=== PATIENT | female | born 1945 | race American Indian/Alaskan Native ===

== ENCOUNTER 2018-11-10 08:41 | Observation (INO) | payer MEDICARE ==
--- NOTE | 2018-11-10 09:21 | C.PDOC ---
History Of Present Illness 73-year-old female presents to the ED for evaluation of chest pain and nausea for 2-3 days. The patient reports she has not been feeling well associated with nausea for the last few days, today states she was near syncope, and felt a pinching to the left side of the chest. Denies shortness of breath, fever, vomiting, and any other associated symptoms. Time Seen by Provider: 11/10/18 09:13 Chief Complaint (Nursing): Chest Pain History Per: Patient History/Exam Limitations: no limitations Onset/Duration Of Symptoms: Days Current Symptoms Are (Timing): Still Present Recent travel outside of the [place]: No Past Medical History Reviewed: Historical Data, Nursing Documentation, Vital Signs Vital Signs: Last Vital Signs Temp 97.9 F 11/10/18 08:54 Pulse 70 11/10/18 08:54 Resp 16 11/10/18 08:54 BP 133/78 11/10/18 08:54 Pulse Ox 99 11/10/18 08:54 - Medical History PMH: HTN, Hyperlipidemia - [facility] Procedures APPLICATION OF SPLINT (04/04/15) COLONOSCOPY (08/27/13) ESOPHAGOGASTRODUODENOSCOPY [EGD] W/CLOSED BIOPSY (08/27/13) Family History: States: Unknown Family Hx - Social History Hx Tobacco Use: No Hx Alcohol Use: No Hx Substance Use: No - Immunization History Hx Tetanus Toxoid Vaccination: No Hx Influenza Vaccination: No Hx Pneumococcal Vaccination: No Review Of Systems Except As Marked, All Systems Reviewed And Found Negative. Constitutional: Negative for: Fever Cardiovascular: Positive for: Chest Pain Respiratory: Negative for: Shortness of Breath Gastrointestinal: Positive for: Vomiting Neurological: Positive for: Other (near syncope.) Physical Exam - Physical Exam Appears: Well, Non-toxic, No Acute Distress Skin: Normal Color, Warm, Dry Head: Atraumatic, Normacephalic Eye(s): bilateral: Normal Inspection Oral Mucosa: Moist Neck: Normal ROM, Supple Chest: Symmetrical, No Deformity Cardiovascular: Rhythm Regular, No Murmur Respiratory: No Rales, No Rhonchi, No Wheezing Gastrointestinal/Abdominal: Normal Exam, Soft, No Tenderness Neurological/Psych: Oriented x3, Normal Speech, Normal Cognition ED Course And Treatment - Laboratory Results Result Diagrams: 11/10/18 09:41 11/10/18 09:41 ECG Rhythm: Sinus Rhythm Interpretation Of ECG: Nonspecific T wave abnormalities Rate From EC O2 Sat by Pulse Oximetry: 99 (RA) Pulse Ox Interpretation: Normal - Other Rad CXR X-Ray: Interpreted by Me, Viewed By Me Interpretation: Cardiomegaly. Vascular congestion. No infiltrates Medical Decision Making Medical Decision Making: Plan: -EKG -Blood sent. -CXR Progress/Update: :28 : Spoke with Dr. Cerrato regarding the patients case, who admitted the patient, and requests consult with Dr. Resendiz. Disposition - Disposition Disposition: HOSPITALIZED Disposition Time: 10:37 Condition: STABLE - Clinical Impression Clinical Impression: Chest pain - Scribe Statement The provider has reviewed the documentation as recorded by the Scribe (Ivon Clifton) Provider Attestation: All medical record entries made by the Scribe were at my direction and personally dictated by me. I have reviewed the chart and agree that the record accurately reflects my personal performance of the history, physical exam, medical decision making, and the department course for this patient. I have also personally directed, reviewed, and agree with the discharge instructions and disposition. Decision To Admit - Pt Status Changed To: Hospital Disposition Of: Observation - . Bed Request Type: Telemetry Admitting Physician: Akosua Cerrato Patient Diagnosis: Chest pain
[2018-11-10 09:56] LABS: BASO % 0.9 % (0.0-2.0); EOS # 0.2 K/uL (0.0-0.7); EOS % 3.7 % (0.0-4.0); HEMOGLOBIN 12.3 g/dL (11.0-16.0); LYMPH # 1.1 K/uL (1.0-4.3); LYMPH % 20.6 % (20.0-40.0); MEAN CELL VOLUME 92.5 fL (81.0-99.0); MEAN CORPUSCULAR HEMOGLOBIN 31.3 pg (27.0-31.0); MEAN CORPUSCULAR HGB CONC 33.8 g/dL (33.0-37.0); MEAN PLATELET VOLUME 8.4 fL (7.2-11.7); MONO # 0.7 K/uL (0.0-0.8); MONO % 12.5 % (0.0-10.0); NEUT # 3.3 K/uL (1.8-7.0); NEUT % 62.3 % (50.0-75.0); RBC 3.95 Mil/uL (3.80-5.20); RED CELL DISTRIBUTION WIDTH 13.3 % (11.5-14.5); WHITE BLOOD COUNT 5.3 K/uL (4.8-10.8)
[2018-11-10 10:09] LABS: ALB/GLOB RATIO 1.1 (1.0-2.1); ALBUMIN 4.3 g/dL (3.5-5.0); ALT/SGPT 41 U/L (9-52); AST/SGOT 65 U/L (14-36); BLOOD UREA NITROGEN 8 mg/dL (7-17); CALCIUM 9.6 mg/dl (8.6-10.4); GFR NON-AFRICAN AMERICAN > 60; LIPASE 128 U/L (23-300)
--- NOTE | 2018-11-10 13:13 | RAD ---
Date of service: 11/10/2018 PROCEDURE: CHEST RADIOGRAPH, 1 VIEW HISTORY: chest pain COMPARISON: Comparison is made with 04/28/2016 FINDINGS: LUNGS: Clear. PLEURA: No pneumothorax or pleural fluid seen. CARDIOVASCULAR: No aortic atherosclerotic calcification present. Normal. OSSEOUS STRUCTURES: No significant abnormalities. VISUALIZED UPPER ABDOMEN: Normal. OTHER FINDINGS: None. IMPRESSION: No significant interval changes.
--- NOTE | 2018-11-10 16:42 | CP.PCM.CON ---
History of Present Illness - History of Present Illness History of Present Illness: 73 years old female came to the ED at [facility] complaining of a pinching sensation in the left chest on and off for the past 4 days, with occasional nausea and burping. Patient denies any SOB, weakness, radiation of the pain. Kn own to be obese, hypertensive, with a Hx of CAD( s/p coronary angioplasty 20 years ago at [facility]), hypercholesterolemia, s/p right breast lumpectomy 2 years go for breast cancer, esophageal reflux ( EGD 2-3 years ago ( Dr Cheung), she denies any cigarette smoking. any alcohol abuse, any drug allergy, any family history of heart disease. Her home medications include Amlodipine, ASA, Anastrozole, Atorvastatin, Omeprazole. First ECG done in the ED: RSR, non spefic ST-T wave change. CXR: No acute infilltrate. TNI: WNL. Review of Systems - Cardiovascular Cardiovascular: Chest Pain - Gastrointestinal Gastrointestinal: Nausea Past Patient History - Infectious Disease Hx of Infectious Diseases: None - Tetanus Immunizations Tetanus Immunization: Unknown - Past Social History Smoking Status: Never Smoked Alcohol: None Home Situation {Lives}: With Family Domestic Violence: Negative - CARDIAC Hx Cardiac Disorders: Yes Hx Angina: Yes Hx Hypercholesterolemia: Yes Hx Hypertension: Yes - HEMATOLOGICAL/ONCOLOGICAL Hx Cancer: Yes (LEFT BREAST) - GASTROINTESTINAL Hx Gastroesophageal Reflux: Yes - PSYCHIATRIC Hx Substance Use: No - SURGICAL HISTORY Hx Angiogram: Yes Hx Angioplasty: Yes (Coronary angioplasty 20 years ago at [facility]) Hx Breast Biopsy: Yes - ANESTHESIA Hx Anesthesia: Yes Hx Anesthesia Reactions: No Meds Allergies/Adverse Reactions: Allergies Allergy/AdvReac Type Severity Reaction Status Date / Time No Known Allergies Allergy Verified 11/10/18 08:51 - Medications Medications: Current Medications Amlodipine Besylate (Norvasc) 10 mg PO DAILY [facility] Last Admin: 11/10/18 13:48 Dose: 10 mg Aspirin (Aspirin Chewable) 81 mg PO DAILY [facility] Physical Exam - Constitutional Appears: Well, No Acute Distress - Head Exam Head Exam: NORMAL INSPECTION - Eye Exam Eye Exam: Normal appearance Pupil Exam: NORMAL ACCOMODATION - ENT Exam ENT Exam: Normal Exam - Neck Exam Neck exam: Positive for: Normal Inspection - Respiratory Exam Respiratory Exam: Clear to Auscultation Bilateral, NORMAL BREATHING PATTERN - Cardiovascular Exam Cardiovascular Exam: REGULAR RHYTHM - GI/Abdominal Exam GI & Abdominal Exam: Normal Bowel Sounds, Soft - Rectal Exam Rectal Exam: Deferred - Extremities Exam Extremities exam: Positive for: normal inspection - Back Exam Back exam: NORMAL INSPECTION - Neurological Exam Neurological exam: Alert, Oriented x3 - Psychiatric Exam Psychiatric exam: Anxious - Skin Skin Exam: Dry, Intact, Normal Color Results - Vital Signs Recent Vital Signs: Last Vital Signs Temp 98.1 F 11/10/18 11:47 Pulse 74 11/10/18 15:49 Resp 18 11/10/18 11:47 BP 134/78 11/10/18 11:47 Pulse Ox 99 11/10/18 15:03 - Labs Result Diagrams: 11/10/18 09:41 11/10/18 09:41 Labs: Laboratory Results - last 24 hr 11/10/18 11/10/18 11/10/18 09:41 09:41 09:41 WBC 5.3 RBC 3.95 Hgb 12.3 Hct 36.5 MCV 92.5 D MCH 31.3 H MCHC 33.8 RDW 13.3 Plt Count 294 MPV 8.4 Neut % (Auto) 62.3 Lymph % (Auto) 20.6 Keith % (Auto) 12.5 H Eos % (Auto) 3.7 Baso % (Auto) 0.9 Neut # (Auto) 3.3 Lymph # (Auto) 1.1 Keith # (Auto) 0.7 Eos # (Auto) 0.2 Baso # (Auto) 0.0 APTT 37 H Sodium 135 Potassium 4.2 Chloride 98 Carbon Dioxide 26 Anion Gap 15 BUN 8 Creatinine 0.6 L Est GFR ( Amer) > 60 Est GFR (Non-Af Amer) > 60 Random Glucose 107 H Calcium 9.6 Total Bilirubin 0.5 AST 65 H ALT 41 Alkaline Phosphatase 102 Troponin I < 0.0120 Total Protein 8.4 H Albumin 4.3 Globulin 4.0 H Albumin/Globulin Ratio 1.1 Lipase 128 Assessment & Plan (1) Chest pain Assessment and Plan: Serial ECG's and serum TNI's. Echocardiogram. To continue ASA, statins. Add Metoprolol. Status: Acute
[2018-11-10 17:34] LABS: CK-MB 3.33 ng/mL (0.0-3.38)
[2018-11-10] MEDS: Metoprolol Succinate 25 mg XL Tab PO SCH (17:50)
--- NOTE | 2018-11-10 18:55 | CP.PCM.HP ---
History of Present Illness - History of Present Illness History of Present Illness: Admitted this 73 years old female because of a pinchiong pain at the left precordial area occuring on and off. Ths AM she suddenely felt faint she almost collapsed thereby causing her to come to the ER. In the ER her troponin was normal, and her ECG was non sp. ST-T wave changes. Patient had hyperlipidemia but could not tolerate any statins mainfested by severe muscle pains.She had an EGD done which showed esophageal reflux. She had lumpectomy of the right breast 2 yaers ago.Hypertensive and was on Amlodipine and was well controlled with 10 mgm.She had an angiogram about 20 years ago which was negative. Present on Admission - Present on Admission Any Indicators Present on Admission: No Review of Systems - Review of Systems All systems: reviewed and no additional remarkable complaints except Review of Systems: System revie essentially negative except fot the chest pains as stated at the CC. - Cardiovascular Cardiovascular: Chest Pain - Reproductive: Female Reproductive:Female: Menopausal Past Patient History - Infectious Disease Hx of Infectious Diseases: None - Tetanus Immunizations Tetanus Immunization: Unknown - Past Social History Smoking Status: Never Smoked Chewing Tobacco Use: No Cigar Use: No Alcohol: None Home Situation {Lives}: With Family Domestic Violence: Negative - CARDIAC Hx Cardiac Disorders: Yes Hx Angina: Yes Hx Hypercholesterolemia: Yes Hx Hypertension: Yes - HEMATOLOGICAL/ONCOLOGICAL Hx Cancer: Yes (LEFT BREAST) - GASTROINTESTINAL Hx Gastroesophageal Reflux: Yes - PSYCHIATRIC Hx Substance Use: No - SURGICAL HISTORY Hx Angiogram: Yes Hx Angioplasty: Yes (Coronary angioplasty 20 years ago at [facility]) Hx Breast Biopsy: Yes (patient had lupectomy of the right breast for CA>) - ANESTHESIA Hx Anesthesia: Yes Hx Anesthesia Reactions: No Hx Malignant Hyperthermia: No Has any member of the family had a problem w/ anesthesia?: No Meds Allergies/Adverse Reactions: Allergies Allergy/AdvReac Type Severity Reaction Status Date / Time No Known Allergies Allergy Verified 11/10/18 08:51 Physical Exam - Constitutional Appears: No Acute Distress - Head Exam Head Exam: ATRAUMATIC, NORMAL INSPECTION, NORMOCEPHALIC - Eye Exam Eye Exam: Normal appearance, PERRL Pupil Exam: NORMAL ACCOMODATION, PERRL - ENT Exam ENT Exam: Mucous Membranes Moist - Neck Exam Neck exam: Positive for: Full Rom - Respiratory Exam Respiratory Exam: Clear to Auscultation Bilateral, NORMAL BREATHING PATTERN - Cardiovascular Exam Cardiovascular Exam: REGULAR RHYTHM, +S1, +S2 - GI/Abdominal Exam GI & Abdominal Exam: Normal Bowel Sounds, Soft - Rectal Exam Rectal Exam: Deferred - Extremities Exam Extremities exam: Positive for: full ROM, normal inspection - Back Exam Back exam: FULL ROM, NORMAL INSPECTION - Neurological Exam Neurological exam: Alert, Oriented x3, Reflexes Normal - Psychiatric Exam Psychiatric exam: Normal Affect, Normal Mood - Skin Skin Exam: Intact, Normal Color, Warm Results - Vital Signs Recent Vital Signs: Last Vital Signs Temp 97.9 F 11/10/18 16:40 Pulse 69 11/10/18 16:40 Resp 20 11/10/18 16:40 BP 103/62 11/10/18 16:40 Pulse Ox 96 11/10/18 16:40 - Labs Result Diagrams: 11/10/18 09:41 11/10/18 09:41 Labs: Laboratory Results - last 24 hr 11/10/18 11/10/18 11/10/18 09:41 09:41 09:41 WBC 5.3 RBC 3.95 Hgb 12.3 Hct 36.5 MCV 92.5 D MCH 31.3 H MCHC 33.8 RDW 13.3 Plt Count 294 MPV 8.4 Neut % (Auto) 62.3 Lymph % (Auto) 20.6 [place] % (Auto) 12.5 H Eos % (Auto) 3.7 Baso % (Auto) 0.9 Neut # (Auto) 3.3 Lymph # (Auto) 1.1 [place] # (Auto) 0.7 Eos # (Auto) 0.2 Baso # (Auto) 0.0 APTT 37 H Sodium 135 Potassium 4.2 Chloride 98 Carbon Dioxide 26 Anion Gap 15 BUN 8 Creatinine 0.6 L Est GFR ( Amer) > 60 Est GFR (Non-Af Amer) > 60 Random Glucose 107 H Calcium 9.6 Total Bilirubin 0.5 AST 65 H ALT 41 Alkaline Phosphatase 102 Total Creatine Kinase CK-MB (Mass) Troponin I < 0.0120 Total Protein 8.4 H Albumin 4.3 Globulin 4.0 H Albumin/Globulin Ratio 1.1 Lipase 128 11/10/18 17:02 WBC RBC Hgb Hct MCV MCH MCHC RDW Plt Count MPV Neut % (Auto) Lymph % (Auto) [place] % (Auto) Eos % (Auto) Baso % (Auto) Neut # (Auto) Lymph # (Auto) [place] # (Auto) Eos # (Auto) Baso # (Auto) APTT Sodium Potassium Chloride Carbon Dioxide Anion Gap BUN Creatinine Est GFR ( Amer) Est GFR (Non-Af Amer) Random Glucose Calcium Total Bilirubin AST ALT Alkaline Phosphatase Total Creatine Kinase 636 H CK-MB (Mass) 3.33 Troponin I < 0.0120 Total Protein Albumin Globulin Albumin/Globulin Ratio Lipase Assessment & Plan - Assessment and Plan (Free Text) Assessment: Assessment: Left sided chest pains cuse to be determined. Hypertension. Obesity Hyperlipidemia. Ca of the right breast. Gastroesophageal reflux Plan: Plan: Will start on Metoprolol. Echo in AM. Serial Troponin and ECG.
[2018-11-11 08:34] LABS: ALBUMIN 3.9 g/dL (3.5-5.0); ALT/SGPT 40 U/L (9-52); AST/SGOT 49 U/L (14-36); BLOOD UREA NITROGEN 8 mg/dL (7-17); CALCIUM 9.4 mg/dl (8.6-10.4); GFR NON-AFRICAN AMERICAN > 60; HDL CHOLESTEROL 49 mg/dL (30-70)
[2018-11-11 08:53] LABS: LDL CHOLESTEROL 92 mg/dL (0-129)
[2018-11-11] MEDS: Metoprolol Succinate 25 mg XL Tab PO SCH (10:08)
[2018-11-11] MEDS: Enoxaparin 40 mg Syringe SC SCH (10:08)
[2018-11-11 10:09] VITALS: RESP 20
--- NOTE | 2018-11-11 11:27 | CP.PCM.PN ---
Subjective - Date & Time of Evaluation Date of Evaluation: 11/11/18 Time of Evaluation: 11:24 - Subjective Subjective: Slight left sided chest pains last night. No acute change on the monitor. Troponin repeated at 6:00 Pm last night was normal. Undergoing Echo at this time. Objective - Vital Signs/Intake and Output Vital Signs (last 24 hours): Temp Pulse Resp BP Pulse Ox 97.4 F L 67 20 118/71 98 11/11/18 07:00 11/11/18 10:09 11/11/18 10:09 11/11/18 10:09 11/11/18 10:09 Intake and Output: 11/11/18 11/11/18 06:59 18:59 Intake Total 120 Balance 120 - Medications Medications: Current Medications Amlodipine Besylate (Norvasc) 5 mg PO DAILY [facility] Last Admin: 11/11/18 10:08 Dose: 5 mg Anastrozole (Arimidex 1 Mg Tab) 1 mg PO DAILY [facility] Aspirin (Aspirin Chewable) 81 mg PO DAILY [facility] Last Admin: 11/11/18 10:08 Dose: 81 mg Enoxaparin Sodium (Lovenox) 40 mg SC DAILY [facility] Last Admin: 11/11/18 10:08 Dose: 40 mg Metoprolol Succinate (Toprol Xl) 25 mg PO DAILY [facility] Last Admin: 11/11/18 10:08 Dose: 25 mg Rosuvastatin Calcium (Crestor) 10 mg PO HS [facility] Last Admin: 11/10/18 21:34 Dose: 10 mg - Labs Labs: 11/10/18 09:41 11/11/18 07:55 APTT 37 SECONDS (21-34) H 11/10/18 09:41 - Constitutional Appears: Well, No Acute Distress - Head Exam Head Exam: NORMAL INSPECTION, NORMOCEPHALIC - Eye Exam Eye Exam: EOMI, Normal appearance Pupil Exam: PERRL - ENT Exam ENT Exam: Mucous Membranes Moist, Normal Exam - Neck Exam Neck Exam: Full ROM - Respiratory Exam Respiratory Exam: Clear to Ausculation Bilateral, NORMAL BREATHING PATTERN - Cardiovascular Exam Cardiovascular Exam: REGULAR RHYTHM, +S1, +S2 - GI/Abdominal Exam GI & Abdominal Exam: Soft, Normal Bowel Sounds - Rectal Exam Rectal Exam: Deferred - Extremities Exam Extremities Exam: Full ROM - Back Exam Back Exam: NORMAL INSPECTION - Neurological Exam Neurological Exam: Alert, Awake, Oriented x3 - Psychiatric Exam Psychiatric exam: Normal Affect, Normal Mood - Skin Skin Exam: Intact, Normal Color, Warm Assessment and Plan - Assessment and Plan (Free Text) Assessment: Assessment: Angina? Hyperlipedemia. Hypertension Obesity Ca of the right breast Plan: Plan: Continue Norvasc and Metoprolo Check Echo result.
--- NOTE | 2018-11-11 12:50 | CARD ---
APPROVED REPORT Date of service: 11/11/2018 EKG Measurement Heart [id number] <Conclusion> Normal sinus rhythm Normal ECG
--- NOTE | 2018-11-11 15:52 | CARD ---
APPROVED REPORT Date of service: 11/11/2018 EXAM: Two-dimensional and M-mode echocardiogram with Doppler and color Doppler. Other Information Quality : GoodRhythm : INDICATION Chest Pain RISK FACTORS Hypertension Hyperlipidemia 2D DIMENSIONS IVSd1.1 (0.7-1.1cm)LVDd4.6 (3.9-5.9cm) PWd0.9 (0.7-1.1cm)LA Nxilhq72 (18-58mL) LVDs3.3 (2.5-4.0cm)FS (%) 29.1 % LVEF (%)56.0 (>50%)LVEF (Liu's)66.40 % M-Mode DIMENSIONS Left Atrium (MM)4.08 (2.5-4.0cm)IVSd0.97 (0.7-1.1cm) Aortic Root3.08 (2.2-3.7cm)LVDd5.46 (4.0-5.6cm) Aortic Cusp Exc.2.11 (1.5-2.0cm)PWd0.83 (0.7-1.1cm) FS (%) 37 %LVDs3.44 (2.0-3.8cm) LVEF (%)66 (>50%) Mitral Valve MV E Eigacxjs30.1cm/sMV A Qqiuczjr28.8cm/sE/A ratio0.7 TDI Lateral E' Peak V9.51cm/sMedial E' Peak V7.77cm/sE/Lateral E'7.3 E/Medial E'8.9 Tricuspid Valve TR Peak Smrjunwo021jj/sTR Peak [id number] LEFT VENTRICLE The left ventricle is normal size. There is normal left ventricular wall thickness. The left ventricular systolic function is normal. The left ventricular ejection fraction is within the normal range. There is normal LV segmental wall motion. Transmitral Doppler flow pattern is Grade I-abnormal relaxation pattern. RIGHT VENTRICLE The right ventricle is normal size. The right ventricular systolic function is normal. ATRIA The left atrial index is mildly increased The right atrium size is normal. AORTIC VALVE The aortic valve is normal in structure. No aortic regurgitation is present. There is no aortic valvular stenosis. MITRAL VALVE The mitral valve is normal in structure. Mitral regurgitation is trace to mild. TRICUSPID VALVE The tricuspid valve is normal in structure. There is mild tricuspid regurgitation. Right ventricular systolic pressure is estimated at - 34 mmHg. PULMONIC VALVE The pulmonary valve is normal in structure. There is trace pulmonic valvular regurgitation. GREAT VESSELS The aortic root is normal in size. The IVC is normal in size and collapses >50% with inspiration. PERICARDIAL EFFUSION There is no pericardial effusion. <Conclusion> The left ventricular systolic function is normal. Grade I-abnormal relaxation pattern. The right ventricular systolic function is normal. There is mild mitral and tricuspid regurgitation. Right ventricular systolic pressure is estimated at - 34 mmHg. There is no pericardial effusion.
--- NOTE | 2018-11-11 17:56 | CARD ---
APPROVED REPORT Date of service: 11/10/2018 EKG Measurement Heart [id number] <Conclusion> Normal sinus rhythm Nonspecific T wave abnormality Abnormal ECG
--- NOTE | 2018-11-11 20:07 | CP.PCM.PN ---
Subjective - Date & Time of Evaluation Date of Evaluation: 11/11/18 Time of Evaluation: 20:05 - Subjective Subjective: Patient has no complaint of chest pain. TNI x3: WNL. ECG: RSR, WNL Echocardiogram: normal all cardiac chambers and valves, mild MR, TR. To have Stress test as an outpatient. Objective - Vital Signs/Intake and Output Vital Signs (last 24 hours): Temp Pulse Resp BP Pulse Ox 98.8 F 68 20 122/74 97 11/11/18 15:00 11/11/18 16:00 11/11/18 15:00 11/11/18 15:00 11/11/18 15:00 - Medications Medications: Current Medications Amlodipine Besylate (Norvasc) 5 mg PO DAILY [facility] Last Admin: 11/11/18 10:08 Dose: 5 mg Anastrozole (Arimidex 1 Mg Tab) 1 mg PO DAILY [facility] Last Admin: 11/11/18 11:58 Dose: 1 mg Aspirin (Aspirin Chewable) 81 mg PO DAILY [facility] Last Admin: 11/11/18 10:08 Dose: 81 mg Enoxaparin Sodium (Lovenox) 40 mg SC DAILY [facility] Last Admin: 11/11/18 10:08 Dose: 40 mg Metoprolol Succinate (Toprol Xl) 25 mg PO DAILY [facility] Last Admin: 11/11/18 10:08 Dose: 25 mg - Labs Labs: 11/10/18 09:41 11/11/18 07:55 APTT 37 SECONDS (21-34) H 11/10/18 09:41 - Constitutional Appears: Well, No Acute Distress - Head Exam Head Exam: NORMAL INSPECTION - Eye Exam Eye Exam: Normal appearance - ENT Exam ENT Exam: Normal Exam - Neck Exam Neck Exam: Normal Inspection - Respiratory Exam Respiratory Exam: Clear to Ausculation Bilateral, NORMAL BREATHING PATTERN - Cardiovascular Exam Cardiovascular Exam: REGULAR RHYTHM - GI/Abdominal Exam GI & Abdominal Exam: Soft, Normal Bowel Sounds - Rectal Exam Rectal Exam: Deferred - Back Exam Back Exam: NORMAL INSPECTION - Neurological Exam Neurological Exam: Alert, Awake, Oriented x3 - Psychiatric Exam Psychiatric exam: Anxious - Skin Skin Exam: Dry, Intact, Normal Color, Warm Assessment and Plan (1) Chest pain Assessment & Plan: Atypical chest pain. Stress test as an outpatient. Status: Resolved
[2018-11-11 23:17] VITALS: TEMP 97.9
[2018-11-12 07:27] VITALS: O2SAT 96
--- NOTE | 2018-11-12 10:17 | CP.PCM.DIS ---
Provider - Provider Date of Admission: 11/10/18 10:33 Attending physician: Akosua Cerrato MD Consults: 11/10/18 10:41 Physician Consult Stat Comment: Consulting Provider: Benson Resendiz Consulting Physician: Benson Resendiz Reason for Consult: chest pain Additional Comments: chest pain 11/10/18 13:26 Cardiology Consult Routine Comment: chest pain Consulting Provider: Benson Resendiz Consulting Physician: Benson Resendiz Reason for Consult: chestnpain Time Spent in preparation of Discharge (in minutes): 70 Diagnosis - Discharge Diagnosis (1) Chest pain in adult Status: Acute Hospital Course - Lab Results Lab Results: Most Recent Lab Values WBC 5.3 K/uL (4.8-10.8) 11/10/18 09:41 RBC 3.95 Mil/uL (3.80-5.20) 11/10/18 09:41 Hgb 12.3 g/dL (11.0-16.0) 11/10/18 09:41 Hct 36.5 % (34.0-47.0) 11/10/18 09:41 MCV 92.5 fL (81.0-99.0) D 11/10/18 09:41 MCH 31.3 pg (27.0-31.0) H 11/10/18 09:41 MCHC 33.8 g/dL (33.0-37.0) 11/10/18 09:41 RDW 13.3 % (11.5-14.5) 11/10/18 09:41 Plt Count 294 K/uL (130-400) 11/10/18 09:41 MPV 8.4 fL (7.2-11.7) 11/10/18 09:41 Neut % (Auto) 62.3 % (50.0-75.0) 11/10/18 09:41 Lymph % (Auto) 20.6 % (20.0-40.0) 11/10/18 09:41 [place] % (Auto) 12.5 % (0.0-10.0) H 11/10/18 09:41 Eos % (Auto) 3.7 % (0.0-4.0) 11/10/18 09:41 Baso % (Auto) 0.9 % (0.0-2.0) 11/10/18 09:41 Neut # (Auto) 3.3 K/uL (1.8-7.0) 11/10/18 09:41 Lymph # (Auto) 1.1 K/uL (1.0-4.3) 11/10/18 09:41 [place] # (Auto) 0.7 K/uL (0.0-0.8) 11/10/18 09:41 Eos # (Auto) 0.2 K/uL (0.0-0.7) 11/10/18 09:41 Baso # (Auto) 0.0 K/uL (0.0-0.2) 11/10/18 09:41 APTT 37 SECONDS (21-34) H 11/10/18 09:41 Sodium 134 mmol/L (132-148) 11/11/18 07:55 Potassium 4.0 mmol/L (3.6-5.2) 11/11/18 07:55 Chloride 99 mmol/L (98-107) 11/11/18 07:55 Carbon Dioxide 27 mmol/L (22-30) 11/11/18 07:55 Anion Gap 13 (10-20) 11/11/18 07:55 BUN 8 mg/dL (7-17) 11/11/18 07:55 Creatinine 0.7 mg/dL (0.7-1.2) 11/11/18 07:55 Est GFR ( Amer) > 60 11/11/18 07:55 Est GFR (Non-Af Amer) > 60 11/11/18 07:55 Random Glucose 99 mg/dL (65-105) 11/11/18 07:55 Calcium 9.4 mg/dl (8.6-10.4) 11/11/18 07:55 Total Bilirubin 0.5 mg/dL (0.2-1.3) 11/11/18 07:55 AST 49 U/L (14-36) H D 11/11/18 07:55 ALT 40 U/L (9-52) 11/11/18 07:55 Alkaline Phosphatase 88 U/L (38-126) 11/11/18 07:55 Total Creatine Kinase 636 U/L (30-135) H 11/10/18 17:02 CK-MB (Mass) 3.33 ng/mL (0.0-3.38) 11/10/18 17:02 Troponin I < 0.0120 ng/mL (0.00-0.120) 11/11/18 07:55 Total Protein 7.6 g/dL (6.3-8.3) 11/11/18 07:55 Albumin 3.9 g/dL (3.5-5.0) 11/11/18 07:55 Globulin 3.7 gm/dL (2.2-3.9) 11/11/18 07:55 Albumin/Globulin Ratio 1.0 (1.0-2.1) 11/11/18 07:55 Triglycerides 53 mg/dL (0-149) 11/11/18 07:55 Cholesterol 165 mg/dL (0-199) 11/11/18 07:55 LDL Cholesterol Direct 92 mg/dL (0-129) 11/11/18 07:55 HDL Cholesterol 49 mg/dL (30-70) 11/11/18 07:55 Lipase 128 U/L (23-300) 11/10/18 09:41 - Hospital Course Hospital Course: Admitted this 73 years old female because of left sided chest pains which started about 4 days prior to admission. The pains was on and off. and on day of admission she felt very faint. Her ECG was nosp ST T wave and normal on discharge. Her Troponins were normal Her Echo showed mild MR AND TR. Pains ould probably be muscular in nature. patient can be discharged as per DR. Chapman, and a myoview stress test to be done as an outpatient. - Date & Time of H&P Date of H&P: 11/12/18 Time of H&P: 10:14 Discharge Exam - Head Exam Head Exam: NORMAL INSPECTION - Eye Exam Eye Exam: EOMI, Normal appearance Pupil Exam: PERRL - ENT Exam ENT Exam: Mucous Membranes Moist, Normal External Ear Exam - Neck Exam Neck exam: Full Rom - Respiratory Exam Respiratory Exam: NORMAL BREATHING PATTERN, UNREMARKABLE - Cardiovascular Exam Cardiovascular Exam: REGULAR RHYTHM, +S1, +S2 - GI/Abdominal Exam GI & Abdominal Exam: Normal Bowel Sounds, Unremarkable - Rectal Exam Rectal Exam: Deferred - Back Exam Back exam: FULL ROM - Neurological Exam Neurological exam: Alert, Oriented x3 - Psychiatric Exam Psychiatric exam: Normal Affect, Normal Mood - Skin Skin Exam: Intact, Normal Color Discharge Plan - Follow Up Plan Condition: GOOD Disposition: HOME/ ROUTINE Patient education suggested?: No Additional Instructions: Patient to be seen by DR. Minaya as an outpatient to have a myoview Stress. Patient to be seen by me in the office in 1 week. To continue Medications at home. Clinical Quality Measures - CQM - Stroke Statin prescribed: Yes - CQM - VTE Did patient receive overlap therapy during hosptialization?: No
[2018-11-12] MEDS: Metoprolol Succinate 25 mg XL Tab PO SCH ×2 (10:42→10:47)
[2018-11-12] MEDS: Enoxaparin 40 mg Syringe SC SCH (10:42)
[2018-11-12 10:51] VITALS: BP 119/67; PULSE 58
== END 2018-11-12 12:53 | disposition home or self-care (01) ==
LOC: C.ER 08:41 → C.6T 10:33 → INTOOBSV 10:33
PROVIDERS: ADMIT Legal Medicine; ATTEND Legal Medicine
DX: R07.89 Other chest pain (principal); I10 Essential (primary) hypertension; E66.9 Obesity, unspecified; E78.00 Pure hypercholesterolemia, unspecified; E78.5 Hyperlipidemia, unspecified; I25.10 Atherosclerotic heart disease of native coronary artery without angina pectoris; K21.9 Gastro-esophageal reflux disease without esophagitis; Z98.61 Coronary angioplasty status; Z85.3 Personal history of malignant neoplasm of breast
CPT/HCPCS: 36415; 71045; 80053; 80061; 83690; 84484; 85025; 85730; 93005; 93306; 96372; 99285; G0378; J1650

== ENCOUNTER 2018-12-24 07:32 | Day surgery (SDC) | payer MEDICARE ==
[2018-12-23 10:18] VITALS: BMI 36.3
[2018-12-24 08:16] VITALS: TEMP 97.8
[2018-12-24] MEDS ORDERED: Propofol 10 mg/ml Inj (20 ML) ONE ×2 (09:24→09:52)
[2018-12-24] MEDS ORDERED: Lactated Ringer's 500 ML IV ONE (09:30)
--- NOTE | 2018-12-24 09:38 | CP.SDSHP ---
Same Day Surgery H & P - History Proposed Procedure: egd Pre-Op Diagnosis: heartburn. chest pain refractory to Rx - Previous Medical/Surgical History Cardiac: Hypertension, ASHD/CAD Misc: Other (breast cancer, diverticulosis, glaucoma, osteroporosis, Hp gastritis, hiatal hernia, gerd) Previous Surgical History: Lumpectomy-right breast - Allergies Allergies: Allergies No Known Allergies Allergy (Verified 12/23/18 10:19) - Physical Exam Vital Signs: Vital Signs 12/24/18 08:06 Temperature 97.8 F Pulse Rate 68 Respiratory 18 Rate Blood Pressure 110/55 L O2 Sat by Pulse 97 Oximetry Mental Status: Alert & Oriented x3 Neuro: WNL Heart: WNL Lungs: WNL GI: WNL - Impression Impression: heartburn. chest pain refractory to Rx Pt. Evaluated Today:Candidate for Anesthesia & Procedure: Yes - Date & Time Date: 12/24/18 Time: 09:37 Short Stay Discharge - Short Stay Discharge Admitting Diagnosis/Reason for Visit: HEARTBURN, EPIGASTRIC PAIN, PERSONAL HISTORY OF [place] Disposition: HOME/ ROUTINE
[2018-12-24 09:45] VITALS: PULSE 61; RESP 15; O2SAT 100
[2018-12-24 10:40] VITALS: BP 123/79
== END 2018-12-24 10:41 | disposition home or self-care (01) ==
LOC: C.ENDO 07:32
PROVIDERS: ATTEND Internal Medicine Gastroenterology
DX: K29.50 Unspecified chronic gastritis without bleeding (principal); K22.5 Diverticulum of esophagus, acquired; K44.9 Diaphragmatic hernia without obstruction or gangrene; K21.0 Gastro-esophageal reflux disease with esophagitis; R12 Heartburn; R07.89 Other chest pain; Z86.010 Personal history of colon polyps; I10 Essential (primary) hypertension; E78.5 Hyperlipidemia, unspecified; I25.10 Atherosclerotic heart disease of native coronary artery without angina pectoris
CPT/HCPCS: 43239; 88305; J2704; J7120

== ENCOUNTER 2018-12-27 10:10 | Outpatient (CLI) | payer MEDICARE | END 2018-12-27 10:11 | disposition home or self-care (01) | LOC: C.RADH 10:10 | DX: R13.10 Dysphagia, unspecified (principal) ==